=== PATIENT | male | born 1955 | race Caucasian/White ===

== ENCOUNTER 2018-12-14 09:21 | Day surgery (SDC) | payer SELFPAY ==
[~2018-12-14 09:21] MED LIST: Dexamethasone 4 MG/ML 5 ML MDV ONE; Ketorolac 30 MG/ML SDV ONE; Lactated Ringers 1,000 ML ONE; Lidocaine 1% 4 ML ONE; Lidocaine 1%/Sod Bicarbonate in NS 8.4% 1 ML Syringe IDERM PRN; Midazolam 1 MG/ML 2 ML SDV ONE; Ondansetron 4 MG/2 ML SDV ONE; Propofol 200 MG/20 ML SDV ONE; Sodium Chloride 0.9% 10 ML Syringe FLUSH PRN; fentaNYL 250 MCG/5 ML SDV ONE
[2018-12-14] MEDS: Lactated Ringers 1,000 ML IV SCH ×2 (09:50→14:12)
[2018-12-14] MEDS ORDERED: ceFAZolin 1 GM Vial ONE (10:05)
--- NOTE | 2018-12-14 10:35 | PCM.PREANE ---
Preanesthetic Assessment - Anesthesia/Transfusion/Family Hx Anesthesia History: Prior Anesthesia Without Reaction Family History of Anesthesia Reaction: No Transfusion History: No Prior Transfusion(s) - Review of Systems General: No Symptoms Pulmonary: No Symptoms Cardiovascular: No Symptoms Gastrointestinal: No Symptoms Neurological: No Symptoms Other: Reports: Depression, Anxiety - Physical Assessment NPO Status Date: 12/13/18 NPO Status Time: 20:00 Vital Signs: Last Vital Signs Temp 36.6 C 12/14/18 09:30 Pulse 60 12/14/18 09:30 Resp 16 12/14/18 09:30 BP 138/92 H 12/14/18 09:30 Pulse Ox 97 12/14/18 09:30 Height: 1.77 m Weight: 79.832 kg ASA Class: 2 Mental Status: Alert & Oriented x3 Airway Class: Mallampati = 3 Dentition: Reports: Normal Dentition Thyro-Mental Finger Breadths: 3 Mouth Opening Finger Breadths: 3 ROM/Head Extension: Full Lungs: Clear to Auscultation, Normal Respiratory Effort Cardiovascular: Regular Rate, Regular Rhythm - Imaging/EKG Impressions: Reviewed: SR at 61 bmp, Incomplete RBBB, No obvious ischemia noted per reading physician. - Allergies Allergies/Adverse Reactions: Allergies Allergy/AdvReac Type Severity Reaction Status Date / Time animal dander Allergy Cannot Verified 12/13/18 12:25 Remember grass pollen Allergy Cannot Verified 12/13/18 12:25 Remember mold Allergy Cannot Verified 12/13/18 12:25 Remember - Acknowledgements Anesthesia Type Planned: General Anesthesia (Ett requested per Dr. Bose. ) Pt an Appropriate Candidate for the Planned Anesthesia: Yes Alternatives and Risks of Anesthesia Discussed w Pt/Guardian: Yes Pt/Guardian Understands and Agrees with Anesthesia Plan: Yes PreAnesthesia Questionnaire - Past Health History Medical/Surgical History: Denies Medical/Surgical History HEENT History: Reports: Allergic Rhinitis, Sinusitis, Other (See Below) Other HEENT History: Tinitis bilaterally, tonsillitis, viral pharyngitis Cardiovascular History: Reports: High Cholesterol, Hypertension, Other (See Below) Other Cardiovascular History: Chest pain, noncardiac Respiratory History: Reports: None Gastrointestinal History: Reports: Colon Polyp, Diverticulosis, GERD Genitourinary History: Reports: Prostate Disorder Other Genitourinary History: Prostate cancer [employer] History: Reports: None Neurological History: Reports: None Psychiatric History: Reports: Anxiety, Depression Other Psychiatric History: insomnia Endocrine/Metabolic History: Reports: None Hematologic History: Reports: None Immunologic History: Reports: None Oncologic (Cancer) History: Reports: Prostate Other Dermatologic History: cutaneous skin tags - Infectious Disease History Infectious Disease History: Reports: None - Past Surgical History Head Surgeries/Procedures: Reports: None HEENT Surgical History: Reports: Eye Surgery, Naso-Sinus Surgery, Other (See Below) Other HEENT Surgeries/Procedures: deviated septum on nose 20+years ago Cardiovascular Surgical History: Reports: None Respiratory Surgical History: Reports: None GI Surgical History: Reports: Colonoscopy Male Surgical History: Reports: Prostatectomy, Other (See Below) Other Male Surgeries/Procedures: 2002 Endocrine Surgical History: Reports: None Neurological Surgical History: Reports: None Musculoskeletal Surgical History: Reports: Arthroscopic Procedure, Shoulder Surgery Other Musculoskeletal Surgeries/Procedures:: Right shoulder Oncologic Surgical History: Reports: None - SUBSTANCE USE Smoking Status *Q: Never Smoker Recreational Drug Use History: No - HOME MEDS Home Medications: Home Meds Aspirin [Ecotrin EC] 81 mg PO DAILY 09/04/15 [History] Fish Oil/[place]-3 Fatty Acids [Fish Oil 1,000 MG] 2 tab PO DAILY 09/04/15 [ History] Lisinopril 7.5 mg PO DAILY 09/04/15 [History] Multivitamin [Multi-Vitamin Daily] 1 tab PO DAILY 09/04/15 [History] Fluticasone Propionate [Allergy Relief] 1 spray DENEEN BEDTIME 02/17/16 [History] Cholecalciferol (Vitamin D3) [Vitamin D] 5,000 unit PO DAILY 09/06/18 [History] Adrenal Plus 1 dose PO DAILY 12/13/18 [History] Aloe Vera/Sodium Chloride [[place] Saline Nasal Gel] 1 dose DENEEN BID PRN 12/13/18 [ History] Atranil 1 dose PO DAILY 12/13/18 [History] Biocidin 1 dose PO DAILY 12/13/18 [History] Cardioauxin 1 dose PO DAILY 12/13/18 [History] Camila 500 mg PO DAILY 12/13/18 [History] Optimal Sam 1 dose PO DAILY 12/13/18 [History] Sertraline HCl [Zoloft] 100 mg PO DAILY 12/13/18 [History] Spectazyme 1 dose PO DAILY 12/13/18 [History] - CURRENT (IN HOUSE) MEDS Current Meds: Current Medications Lactated Ringer's (Ringers, Lactated) 1,000 mls @ 125 mls/hr IV ASDIRECTED OWEN Stop: 12/14/18 23:00 Last Admin: 12/14/18 09:50 Dose: 125 mls/hr Lidocaine/Sodium Bicarbonate (Buffered Lidocaine 1% In Ns 8.4%) 0.25 ml IDERM ONETIME PRN PRN Reason: Prior to IV Start Stop: 12/14/18 18:00 Last Admin: 12/14/18 09:50 Dose: 0.25 ml Sodium Chloride (Saline Flush) 10 ml FLUSH ASDIRECTED PRN PRN Reason: Keep Vein Open Stop: 12/14/18 18:00 Discontinued Medications Cefazolin Sodium (Ancef) Confirm Administered Dose 2 gm .ROUTE .STK-MED ONE Stop: 12/14/18 10:06 Dexamethasone (Dexamethasone) Confirm Administered Dose 20 mg .ROUTE .STK-MED ONE Stop: 12/14/18 09:20 Fentanyl (Sublimaze) Confirm Administered Dose 250 mcg .ROUTE .STK-MED ONE Stop: 12/14/18 07:40 Lidocaine HCl (Xylocaine-Mpf 1%) Confirm Administered Dose 4 mls @ as directed .ROUTE .STK-MED ONE Stop: 12/14/18 07:39 Lactated Ringer's (Ringers, Lactated) Confirm Administered Dose 1,000 mls @ as directed .ROUTE .STK-MED ONE Stop: 12/14/18 09:21 Ketorolac Tromethamine (Toradol) Confirm Administered Dose 30 mg .ROUTE .STK- MED ONE Stop: 12/14/18 09:20 Midazolam HCl (Versed 1 Mg/Ml) Confirm Administered Dose 2 mg .ROUTE .STK-MED ONE Stop: 12/14/18 07:40 Ondansetron HCl (Zofran) Confirm Administered Dose 4 mg .ROUTE .STK-MED ONE Stop: 12/14/18 07:39 Propofol (Diprivan 20 Ml) Confirm Administered Dose 200 mg .ROUTE .STK-MED ONE Stop: 12/14/18 07:40 Propofol (Diprivan 20 Ml) Confirm Administered Dose 200 mg .ROUTE .STK-MED ONE Stop: 12/14/18 09:19
[2018-12-14] MEDS ORDERED: Lidocaine 1% with EPINEPHrine 1:100,000 20 ML MDV ONE (11:40)
[2018-12-14] MEDS ORDERED: Ondansetron 4 MG/2 ML SDV IVPUSH PRN (12:02)
[2018-12-14] MEDS ORDERED: fentaNYL 100 MCG/2 ML SDV IVPUSH PRN (12:02)
[2018-12-14] MEDS ORDERED: HYDROmorphone 0.5 MG/0.5 ML Syringe IVPUSH PRN (12:02)
[2018-12-14] MEDS ORDERED: ePHEDrine/Normal Saline 25 MG/5 ML Syringe ONE (12:05)
[2018-12-14] MEDS ORDERED: Neostigmine Methylsulfate 1 MG/ML 5 ML Syringe ONE (12:27)
--- NOTE | 2018-12-14 12:42 | PCM.POSTAN ---
POST ANESTHESIA ASSESSMENT - MENTAL STATUS Mental Status: Alert, Oriented - VITAL SIGNS Vital Signs: Last Vital Signs Temp 97.9 F 12/14/18 09:30 Pulse 60 12/14/18 09:30 Resp 16 12/14/18 09:30 BP 138/92 H 12/14/18 09:30 Pulse Ox 97 12/14/18 09:30 1236 152/87 93 15 98.8 100% - RESPIRATORY Respiratory Status: Respiratory Rate WNL, Airway Patent, O2 Saturation Stable, Supplemental Oxygen - CARDIOVASCULAR CV Status: Pulse Rate WNL, Blood Pressure Stable - GASTROINTESTINAL GI Status: No Symptoms - PAIN Pain Score: 0 - POST OP HYDRATION Hydration Status: Adequate & Stable
--- NOTE | 2018-12-14 12:47 | PCM.PRNOTE ---
- Free Text/Narrative Note: Operative Report Date 12/14/2018 Surgeon: Chris Bose MD Pre-op diagnosis: ventral hernia, reducible Post-op daignosis: same Operation performed: open primary repair of ventral hernia Antibiotic: 2 g ancef DVT ppx: SCDs Findings: subcentimeter reducible hernia at midline a few centimeters superior to the umbilicus, containing visceral fat. Detailed report: The patient underwent general endotracheal anesthesia and timeout was performed. The abdomen was prepped and draped in sterile fashion. The hernia site had been marked pre-op. 10 cc 1% lidocaine with epinephrine was injected intradermally at the site overlying the hernia. The scalpel was used to make a 4 cm midline incision through the dermis to subcutaneous tissue. The hernia sac was opened, and visceral fat was visulaized. This was reducible. Some of the fat was excised to aid with exposure. The fascial edges of the hernia were cleared of overlying tissue. The lateral edges of the defect were grasped and elevated. Several 0 PDS sutures were placed in interrupted transverse orientation, closing the fascial defect. The closure was satisfactory on digital exam. The overlying skin was then closed with running vicryl suture and dressed with dermabond. The patient tolerated the procedure well; there were no complications. Chris Bose MD General Surgery
--- NOTE | 2018-12-14 14:58 | PCM48HPAN ---
Post Anesthesia Note - EVALUATION WITHIN 48HRS OF ANESTHETIC Vital Signs in Normal Range: Yes Patient Participated in Evaluation: Yes Respiratory Function Stable: Yes Airway Patent: Yes Cardiovascular Function Stable: Yes Hydration Status Stable: Yes Pain Control Satisfactory: Yes Nausea and Vomiting Control Satisfactory: Yes Mental Status Recovered: Yes Vital Signs: Last Vital Signs Temp 36.5 C 12/14/18 14:10 Pulse 58 L 12/14/18 14:10 Resp 16 12/14/18 14:10 BP 128/82 12/14/18 14:10 Pulse Ox 96 12/14/18 14:10
[2018-12-14 15:04] VITALS: BP 138/82; PULSE 68
== END 2018-12-14 15:24 | disposition home or self-care (01) ==
LOC: JD.SDS 09:21
PROVIDERS: ATTEND Surgery
DX: K43.9 Ventral hernia without obstruction or gangrene (principal); I10 Essential (primary) hypertension; E78.2 Mixed hyperlipidemia; J30.2 Other seasonal allergic rhinitis; F32.9 Major depressive disorder, single episode, unspecified; F41.9 Anxiety disorder, unspecified; Z91.048 Other nonmedicinal substance allergy status; Z79.82 Long term (current) use of aspirin; Z79.899 Other long term (current) drug therapy
CPT/HCPCS: 49560; 93005; J0690; J1100; J1885; J2001; J2250; J2405; J2704; J2710; J3010; J7050; J7120; 00752

== ENCOUNTER 2021-01-15 08:22 | Day surgery (SDC) | payer OTHER ==
[~2021-01-15 08:22] MED LIST changes: -Dexamethasone 4 MG/ML 5 ML MDV ONE; -Ketorolac 30 MG/ML SDV ONE; +Lactated Ringers 1,000 ML IV SCH; -Lactated Ringers 1,000 ML ONE; -Lidocaine 1% 4 ML ONE; -Midazolam 1 MG/ML 2 ML SDV ONE; -Ondansetron 4 MG/2 ML SDV ONE; -Propofol 200 MG/20 ML SDV ONE; -fentaNYL 250 MCG/5 ML SDV ONE
--- NOTE | 2021-01-15 09:10 | PCM.PREANE ---
Preanesthetic Assessment - Procedure Proposed Procedure: screening colonosocpy diag egd - Anesthesia/Transfusion/Family Hx Anesthesia History: Prior Anesthesia Without Reaction Family History of Anesthesia Reaction: No Transfusion History: No Prior Transfusion(s) - Review of Systems General: No Symptoms Pulmonary: No Symptoms Cardiovascular: No Symptoms Gastrointestinal: No Symptoms Neurological: No Symptoms Other: Reports: Throat Pain (sore throat all the time), Depression, Anxiety - Physical Assessment NPO Status Date: 01/14/21 NPO Status Time: 04:30 (prep) Vital Signs: 145/87 66 97% 18 97.9 Height: 5 ft 9 in Weight: 80.6 kg ASA Class: 2 Mental Status: Alert & Oriented x3 Airway Class: Mallampati = 1 Dentition: Reports: Normal Dentition Thyro-Mental Finger Breadths: 3 Mouth Opening Finger Breadths: 3 ROM/Head Extension: Full Lungs: Clear to Auscultation, Normal Respiratory Effort Cardiovascular: Regular Rate, Regular Rhythm - Allergies Allergies/Adverse Reactions: Allergies Allergy/AdvReac Type Severity Reaction Status Date / Time almond Allergy Cannot Verified 01/14/21 15:04 Remember animal dander Allergy Cannot Verified 01/14/21 15:04 Remember Dairy Products Allergy Cannot Verified 01/14/21 15:04 Remember egg Allergy Cannot Verified 01/14/21 15:04 Remember grass pollen Allergy Cannot Verified 01/14/21 15:04 Remember mold Allergy Cannot Verified 01/14/21 15:04 Remember Sugars, Metabolically Active Allergy Cannot Verified 01/14/21 15:04 Remember - Blood Blood Available: No - Acknowledgements Anesthesia Type Planned: MAC Pt an Appropriate Candidate for the Planned Anesthesia: Yes Alternatives and Risks of Anesthesia Discussed w Pt/Guardian: Yes Pt/Guardian Understands and Agrees with Anesthesia Plan: Yes PreAnesthesia Questionnaire - Past Health History Medical/Surgical History: Denies Medical/Surgical History HEENT History: Reports: Allergic Rhinitis, Sinusitis, Other (See Below) Other HEENT History: Tinitis bilaterally, tonsillitis, viral pharyngitis Cardiovascular History: Reports: High Cholesterol, Hypertension, Other (See Below) Other Cardiovascular History: Chest pain, noncardiac Respiratory History: Reports: None Gastrointestinal History: Reports: Colon Polyp, Diverticulosis, GERD Genitourinary History: Reports: Prostate Disorder Other Genitourinary History: Prostate cancer [employer] History: Reports: None Neurological History: Reports: None Psychiatric History: Reports: Anxiety, Depression Other Psychiatric History: insomnia Endocrine/Metabolic History: Reports: None Hematologic History: Reports: None Immunologic History: Reports: None Oncologic (Cancer) History: Reports: Prostate (2002) Other Dermatologic History: cutaneous skin tags - Infectious Disease History Infectious Disease History: Reports: None - Past Surgical History Head Surgeries/Procedures: Reports: None HEENT Surgical History: Reports: Eye Surgery, Naso-Sinus Surgery, Other (See Below) Other HEENT Surgeries/Procedures: deviated septum on nose 20+years ago Cardiovascular Surgical History: Reports: None Respiratory Surgical History: Reports: None GI Surgical History: Reports: Colonoscopy Male Surgical History: Reports: Prostatectomy, Other (See Below) Other Male Surgeries/Procedures: 2002 Endocrine Surgical History: Reports: None Neurological Surgical History: Reports: None Musculoskeletal Surgical History: Reports: Arthroscopic Procedure, Shoulder Surgery Other Musculoskeletal Surgeries/Procedures:: Right shoulder Oncologic Surgical History: Reports: None - SUBSTANCE USE Tobacco Use Status *Q: Never Tobacco User Tobacco Use Within Last Twelve Months: No Second Hand Smoke Exposure: No Days Per Week of Alcohol Use: 1 Number of Drinks Per Day: 2 Total Drinks Per Week: 2 Recreational Drug Use History: No - HOME MEDS Home Medications: Home Meds Aspirin [Ecotrin EC] 81 mg PO DAILY 09/04/15 [History] Fish Oil/[place]-3 Fatty Acids [Fish Oil 1,000 MG] 2 tab PO DAILY 09/04/15 [History] Fluticasone Propionate [Allergy Relief] 1 spray DENEEN BEDTIME 02/17/16 [History] Cholecalciferol (Vitamin D3) [Vitamin D] 5,000 unit PO DAILY 09/06/18 [History] Adrenal Plus 1 dose PO DAILY 12/13/18 [History] Atranil 1 dose PO DAILY 12/13/18 [History] Cardioauxin 1 dose PO DAILY 12/13/18 [History] Optimal Sam 1 dose PO DAILY 12/13/18 [History] Sertraline HCl [Zoloft] 100 mg PO DAILY 12/13/18 [History] Spectazyme 1 dose PO DAILY 12/13/18 [History] Omeprazole Magnesium [Prilosec Otc] 20 mg PO DAILY 01/14/21 [History] Sildenafil Citrate [Viagra] 100 mg PO ASDIRECTED PRN 01/14/21 [History] Ultrainflamx 1 tab PO DAILY 01/14/21 [History] lisinopriL [Lisinopril] 7.5 mg PO DAILY 01/14/21 [History] - CURRENT (IN HOUSE) MEDS Current Meds: Current Medications Lactated Ringer's (Ringers, Lactated) 1,000 mls @ 125 mls/hr IV ASDIRECTED OWEN Stop: 01/15/21 23:00 Lidocaine/Sodium Bicarbonate (Lidocaine 1%/Sod Bicarbonate In Ns 8.4% 1 Ml Syringe) 0.25 ml IDERM ONETIME PRN PRN Reason: Prior to IV Start Stop: 01/15/21 18:00 Sodium Chloride (Sodium Chloride 0.9% 10 Ml Syringe) 10 ml FLUSH ASDIRECTED PRN PRN Reason: Keep Vein Open Stop: 01/15/21 18:00
[2021-01-15] MEDS ORDERED: Lidocaine 1% 4 ML ONE (09:22)
[2021-01-15] MEDS ORDERED: Propofol 200 MG/20 ML SDV ONE ×2 (09:22→09:51)
[2021-01-15] MEDS ORDERED: fentaNYL 100 MCG/2 ML SDV ONE (09:44)
[2021-01-15] MEDS ORDERED: Lactated Ringers 1,000 ML ONE (10:19)
--- NOTE | 2021-01-15 10:38 | PCM48HPAN ---
Post Anesthesia Note - EVALUATION WITHIN 48HRS OF ANESTHETIC Vital Signs in Normal Range: Yes Patient Participated in Evaluation: Yes Respiratory Function Stable: Yes Airway Patent: Yes Cardiovascular Function Stable: Yes Hydration Status Stable: Yes Pain Control Satisfactory: Yes Nausea and Vomiting Control Satisfactory: Yes Mental Status Recovered: Yes
--- NOTE | 2021-01-15 10:39 | PCM.PRNOTE ---
- Free Text/Narrative Note: Date: 01/15/2021 Procedures: diagnostic esophagogastroduodenoscopy, screening colonoscopy History: reflux type symptoms, improved some on PPI, normal UGI. Father diagnosed with colon cancer, patient had normal screening 5 years ago. Endoscopist: Chris Bose MD Findings: tight LES. Some erythema at the pylorus. No hiatal hernia or esophageal abnormality noted. Excellent bowel prep; cecum reached, no polyps identified, minor diverticulosis of the sigmoid colon, minor internal hemorrhoidal disease. Detailed Report: The patient was taken to the endoscopy suite and placed in left lateral decubitus position. Timeout was performed and monitored anesthesia care was initiated. A bite-block was placed and the endoscope was inserted into the mouth and advanced to the duodenum. It was difficult to traverse the LES due to hypertonicity. The duodenal mucosa appeared grossly normal. Biopsies were obtained from the duodenal bulb with cold forceps. The scope was withdrawn into the stomach. There was patchy erythema at the pylorus; multiple biopsies of this abnormal mucosa were obtained with cold forceps. The remainder of the stomach appeared normal. On retroflexion, no hiatal hernia was noted. The LES seemed hypertonic, but otherwise esophageal mucosa appeared normal. Multiple biopsies of distal esophageal mucosa were obtained with cold forceps. Air was suctioned from the stomach prior to withdrawal of the scope. The remainder the esophagus appeared normal as the scope was withdrawn. Next, attention was turned to colonoscopy. The anus appeared normal and digital rectal exam was significant for minor posterior friability within the anal canal and for notable absence of the prostate. The colonoscope was inserted and advanced all the way to the cecum with ease. The appendiceal orifice was visualized and the terminal ileum was briefly intubated. The scope was slowly withdrawn and mucosal surfaces carefully inspected. The prep was excellent. No polyps were identified. Within the sigmoid colon, minor scattered diverticulosis was noted. On retroflexion in the rectum, small internal hemorrhoids were visualized. Air was suctioned from the distal colon and rectum prior to withdrawal of the scope. The patient tolerated the procedure well.
[2021-01-15 18:56] VITALS: BP 128/84; PULSE 66
== END 2021-01-15 11:15 | disposition home or self-care (01) ==
LOC: JD.SDS 08:22
PROVIDERS: ATTEND Surgery
DX: Z12.11 Encounter for screening for malignant neoplasm of colon (principal); K21.9 Gastro-esophageal reflux disease without esophagitis; K31.89 Other diseases of stomach and duodenum; K29.50 Unspecified chronic gastritis without bleeding; I78.1 Nevus, non-neoplastic; K31.A0 Gastric intestinal metaplasia, unspecified; K57.30 Diverticulosis of large intestine without perforation or abscess without bleeding; K64.8 Other hemorrhoids; F41.9 Anxiety disorder, unspecified; E78.00 Pure hypercholesterolemia, unspecified; I10 Essential (primary) hypertension; E78.2 Mixed hyperlipidemia; G47.00 Insomnia, unspecified; J31.2 Chronic pharyngitis; Z91.048 Other nonmedicinal substance allergy status; Z79.82 Long term (current) use of aspirin; Z79.899 Other long term (current) drug therapy; Z98.890 Other specified postprocedural states; Z80.0 Family history of malignant neoplasm of digestive organs; Z86.010 Personal history of colon polyps; Z91.012 Allergy to eggs; Z91.011 Allergy to milk products
CPT/HCPCS: 43239; 45378; J2704; J3010; J7120; 00813

== ENCOUNTER 2021-06-30 06:51 | Observation (INO) | payer OTHER ==
[~2021-06-30 06:51] MED LIST changes: +Sodium Chloride 0.9% 10 ML Syringe FLUSH SCH
[2021-06-30] MEDS ORDERED: Bupivacaine 0.5%/EPINEPHrine 1:200,000 50 ML MDV ONE (07:18)
[2021-06-30] MEDS ORDERED: Propofol 200 MG/20 ML SDV ONE (08:01)
[2021-06-30] MEDS ORDERED: fentaNYL 250 MCG/5 ML SDV ONE (08:01)
[2021-06-30] MEDS ORDERED: Midazolam 1 MG/ML 2 ML SDV ONE (08:01)
[2021-06-30] MEDS ORDERED: Lidocaine 1% 4 ML ONE (08:02)
[2021-06-30] MEDS ORDERED: Ondansetron 4 MG/2 ML SDV ONE (08:02)
[2021-06-30] MEDS ORDERED: Ketorolac 15 MG/ML SDV ONE (08:02)
[2021-06-30] MEDS ORDERED: Rocuronium 50 MG/5 ML Vial ONE ×2 (08:02→09:41)
[2021-06-30] MEDS ORDERED: Dexamethasone 4 MG/ML SDV ONE (08:02)
[2021-06-30] MEDS ORDERED: ePHEDrine 50 MG/ML SDV ONE (09:08)
[2021-06-30] MEDS ORDERED: Lactated Ringers 1,000 ML ONE ×3 (09:16→11:13)
[2021-06-30] MEDS ORDERED: ceFAZolin 1 GM Vial ONE ×2 (09:16→09:20)
[2021-06-30] MEDS ORDERED: HYDROmorphone 0.5 MG/0.5 ML Syringe ONE ×3 (09:46→11:24)
[2021-06-30] MEDS ORDERED: Sugammadex Sodium 200 MG/2 ML VIAL ONE ×2 (10:00→10:04)
[2021-06-30] MEDS ORDERED: Ondansetron 4 MG/2 ML SDV IVPUSH PRN ×2 (10:20→12:26)
[2021-06-30] MEDS ORDERED: fentaNYL 100 MCG/2 ML SDV IVPUSH PRN (10:20)
[2021-06-30] MEDS ORDERED: HYDROmorphone 0.5 MG/0.5 ML Syringe IVPUSH PRN (10:20)
[2021-06-30] MEDS ORDERED: fentaNYL 100 MCG/2 ML SDV ONE (11:20)
[2021-06-30] MEDS ORDERED: oxyCODONE 5 MG Tab PO PRN (12:14)
[2021-06-30] MEDS ORDERED: Ondansetron 4 MG in Sodium Chloride 0.9% 50 ML IV PRN (12:16)
[2021-06-30] MEDS ORDERED: Benzocaine/Cetylpyridinium/Menthol Lozenge MUCMEM PRN (12:18)
[2021-06-30] MEDS ORDERED: Phenol 1.4% Oral Spray 177 ML Bottle MUCMEM PRN (12:19)
[2021-06-30] MEDS: Lactated Ringers 1,000 ML IV SCH ×2 (13:41→23:42)
[2021-06-30] MEDS: Morphine 2 MG/ML SYRINGE IVPUSH PRN ×2 (14:11→16:10)
[2021-06-30] MEDS: Acetaminophen 325 MG Tab PO SCH ×2 (14:15→20:49)
[2021-06-30] MEDS: Heparin Sodium 5,000 Units/ML Vial SUBCUT SCH ×2 (14:21→20:46)
[2021-06-30] MEDS ORDERED: HYDROmorphone 0.5 MG/0.5 ML Syringe IVPUSH ONE (17:10)
[2021-06-30] MEDS: Ketorolac 15 MG/ML SDV IVPUSH SCH ×2 (18:52→23:42)
[2021-06-30] MEDS ORDERED: atorvaSTATin 20 MG Tab PO SCH (21:00)
[2021-06-30] MEDS: Simethicone 80 MG Tab.Chew PO PRN (21:00)
[2021-06-30] MEDS: HYDROmorphone 0.5 MG/0.5 ML Syringe IVPUSH PRN (21:01)
[2021-07-01] MEDS: Heparin Sodium 5,000 Units/ML Vial SUBCUT SCH ×2 (00:27→05:50)
[2021-07-01] MEDS: Acetaminophen 325 MG Tab PO SCH ×2 (05:46→12:25)
[2021-07-01] MEDS: Ketorolac 15 MG/ML SDV IVPUSH SCH ×2 (05:48→12:24)
[2021-07-01] MEDS ORDERED: Sertraline 50 MG Tab PO SCH (09:00)
[2021-07-01] MEDS ORDERED: amLODIPine 5 MG Tab PO SCH (09:00)
[2021-07-01] MEDS: HYDROmorphone 0.5 MG/0.5 ML Syringe IVPUSH PRN (09:56)
[2021-07-01 11:20] VITALS: BP 132/84; PULSE 62
[2021-07-01] MEDS: Simethicone 80 MG Tab.Chew PO PRN (12:35)
== END 2021-07-01 14:38 | disposition home or self-care (01) ==
LOC: JD.MS 06:51 → INTOOBSV 06:51 → JD.MS 13:31
PROVIDERS: ADMIT Surgery; ATTEND Surgery
DX: K44.9 Diaphragmatic hernia without obstruction or gangrene (principal); E78.2 Mixed hyperlipidemia; C61 Malignant neoplasm of prostate; I10 Essential (primary) hypertension; K21.9 Gastro-esophageal reflux disease without esophagitis; F41.9 Anxiety disorder, unspecified; F32.A Depression, unspecified; Z86.010 Personal history of colon polyps; Z91.048 Other nonmedicinal substance allergy status; Z79.899 Other long term (current) drug therapy; Z79.82 Long term (current) use of aspirin; Z98.890 Other specified postprocedural states; Z91.011 Allergy to milk products
CPT/HCPCS: 36415; 43281; 80048; 85025; 94760; 96372; 96374; 96375; 96376; A9270; G0378; J0690; J1100; J1170; J1644; J1885; J2250; J2270; J2405; J2704; J2710; J3010; J3490; J7120; 00790